=== PATIENT | male | born 1985 | race African-American/Black ===

== ENCOUNTER 2016-12-09 11:39 | Emergency (ER) | payer SELFPAY ==
[~2016-12-09] VITALS: Ht 170.2 cm; Wt 115.0 kg
[~2016-12-09 11:39] MED LIST: PROT40TA PO
[2016-12-09 11:41] VITALS: BP 136/78; PULSE 74; RESP 16; TEMP 98.2; O2SAT 97
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
[2016-12-09] MEDS ORDERED: MAXI5O LEFT EYE (12:01)
[2016-12-09] MEDS ORDERED: IBUP800T23 PO (12:01)
== END 2016-12-09 12:10 | disposition home or self-care (01) ==
LOC: NEPK 11:39
DX: H10.89 Other conjunctivitis (principal)
CPT/HCPCS: 99283

== ENCOUNTER 2017-08-28 17:27 | Emergency (ER) | payer SELFPAY ==
[~2017-08-28] VITALS: Ht 177.8 cm; Wt 123.0 kg
[~2017-08-28 17:27] MED LIST changes: +IBUP1TAB7 PO; +MAXI5O LEFT EYE; -PROT40TA PO
[2017-08-28 17:29] VITALS: BP 147/91; PULSE 104; RESP 18; TEMP 98.2; O2SAT 98
[2017-08-28] MEDS ORDERED: NEXI20CA PO (20:04)
--- NOTE | 2017-08-28 20:14 | PD ---
HPI Chief Complaint: GI Complaint Time Seen by Provider: 19:56 Travel History International Travel<30 days: No Contact w/Intl Traveler<30days: No Traveled to known affect area: No History of Present Illness HPI Patient is a 32-year-old male who was recently at [facility] for stomach pain was told that he has acid reflux. Patient was discharged with Nexium. He says he cannot afford the prescription he describes intermittent epigastric pain. Umbilical pain with nausea and then he says he coughs he thinks from the reflux. In the ER he is complaining of periumbilical pain radiating up his esophagus he also says 2 days of diarrhea have begun as well. He is not taking anything to alleviate his symptoms he has not seen another doctor in the last 2 days since he left [facility] he has no sick contacts he has no primary care doctor [facility] Past Medical History Hx Anticoagulant Therapy: No Asthma: Yes Cancer: No Cardiovascular Problems: Yes Chemotherapy: No Cerebrovascular Accident: No Diabetes: No Diminished Hearing: No Endocrine: No GERD: Yes Immune Disorder: No Neurologic: No Psychiatric: No Reproductive: No Respiratory: Yes (Asthma) Pancreatitis: Yes Social History Alcohol Use: Yes (occ) Tobacco Use: Yes (1 PPD) Substance Use: Yes ( MARIJUANA) Allergies-Medications (Allergen,Severity, Reaction): Coded Allergies: shellfish derived (Verified Allergy, Severe, rash, swelling, 08/28/17) Reported Meds & Prescriptions Reported Meds & Active Scripts Active Omeprazole 40 Mg Cap 40 Mg PO DAILY Magic Mouthwash Pediatric/Adult Liq (Lidocaine/Diphenhydr/Alum/Mg/Simeth) 60 Ml Susp 5 Ml SWISH-SWAL ACHS Each 5mL contains: Diphenydramine 4.5mg, Viscous Lidocaine 2% 10mg, Maalox Advanced Regular Strength 2.7ml Reported Nexium (Esomeprazole DR) 20 Mg Capdr 20 Mg PO DAILY Review of Systems Except as stated in HPI: all other systems reviewed are Neg Physical Exam Narrative GENERAL: SKIN: Warm and dry. HEAD: Atraumatic. Normocephalic. EYES: Pupils equal and round. No scleral icterus. No injection or drainage. ENT: No nasal bleeding or discharge. Mucous membranes pink and moist. NECK: Trachea midline. No JVD. CARDIOVASCULAR: Regular rate and rhythm. RESPIRATORY: No accessory muscle use. Clear to auscultation. Breath sounds equal bilaterally. GASTROINTESTINAL: Abdomen mildly obese tender in the periumbilical as well as epigastric area no right lower quadrant pain no right upper quadrant pain. NEUROLOGICAL: Awake and alert. No obvious cranial nerve deficits. Motor grossly within normal limits. Five out of 5 muscle strength in the arms and legs. Normal speech. PSYCHIATRIC: Appropriate mood and affect; insight and judgment normal. Data Data Last Documented VS Vital Signs Date Time Temp Pulse Resp B/P (MAP) Pulse Ox O2 Delivery O2 Flow Rate FiO2 08/28/17 17:29 98.2 104 18 147/91 (109) 98 Orders Orders Ondansetron Odt (Zofran Odt) (08/28/17 20:15) Al-Mag Hy-Si 40-40-4 Mg/Ml Liq (Mag-Al P (08/28/17 20:15) Lidocaine 2% Viscous (Xylocaine 2% Visco (08/28/17 20:15) Lidocaine 2% Viscous (Xylocaine 2% Visco (08/28/17 20:15) Pantoprazole (Protonix) (08/28/17 21:15) Famotidine (Pepcid) (08/28/17 21:15) Ed Discharge Order (08/28/17 22:16) MDM Medical Decision Making Medical Screen Exam Complete: Yes Emergency Medical Condition: Yes Differential Diagnosis Differential diagnosis includes pancreatitis versus cholecystitis versus gastritis versus abdomen NOS versus mesenteric adenitis Narrative Course Patient is given Zofran oral dissolve tabs and then 20 minute later a GI cocktail. Patient now feels better with just the GI cocktail he says he has relief of his symptoms of epigastric pain. I discussed with the patient that once he was here with pancreatitis and a lipase in the thousands he says that was very different pain in the office pain is resolved with just the antacids I given him today I feel it is safe to let him go home with a diagnosis of gastritis as pancreatitis would not have gotten better with my and acid treatment. Discharged home with a prescription for omeprazole and viscous lidocaine Maalox Diagnosis Primary Impression: GERD (gastroesophageal reflux disease) Qualified Codes: K21.9 - Gastro-esophageal reflux disease without esophagitis Patient Instructions: Gastritis (ED), General Instructions Scripts Omeprazole (Omeprazole) 40 Mg Cap 40 MG PO DAILY, #14 CAP 1 Refill Prov: Felipe Meier MD 08/28/17 Ncvhctlcenckwia-Hffiitdxm-Byy-Alum-Simeth Liq (Magic Mouthwash Pediatric/Adult Liq) 60 Ml Susp 5 ML SWISH-SWAL ACHS for Mouth sores, #60 ML 0 Refills Each 5mL contains: Diphenydramine 4.5mg, Viscous Lidocaine 2% 10mg, Maalox Advanced Regular Strength 2.7ml Prov: Felipe Meier MD 08/28/17 Disposition: 01 DISCHARGE HOME Condition: Good Felipe Meier MD Aug 28, 2017 20:14
[2017-08-28] MEDS ORDERED: ONDANSETRON ODT 4 MG TAB PO ONE (20:15)
[2017-08-28] MEDS ORDERED: ALUMINUM/MAGNESIUM/SIMETH 30 ML CUP PO ONE (20:15)
[2017-08-28] MEDS ORDERED: LIDOCAINE VISCOUS 2% SOLN 15 ML UDC SWISH-SPIT ONE (20:15)
[2017-08-28] MEDS ORDERED: LIDOCAINE VISCOUS 2% SOLN 15 ML UDC SWISH-SWAL ONE (20:15)
[2017-08-28] MEDS ORDERED: FAMOTIDINE 20 MG TAB PO ONE (21:15)
[2017-08-28] MEDS ORDERED: PANTOPRAZOLE SOD 40 MG DELAYED RELEASE TAB PO ONE (21:15)
[2017-08-28] MEDS ORDERED: MAGICPED SWISH-SWAL (22:16)
[2017-08-28] MEDS ORDERED: OMEP40CA2 PO (22:16)
== END 2017-08-28 22:28 | disposition home or self-care (01) ==
LOC: NEPE 17:27
DX: K21.9 Gastro-esophageal reflux disease without esophagitis (principal); F12.90 Cannabis use, unspecified, uncomplicated; F17.200 Nicotine dependence, unspecified, uncomplicated
CPT/HCPCS: 99283